=== PATIENT | male | born 1990 | race Caucasian/White ===

== ENCOUNTER 2019-07-04 11:17 | Emergency (ER) | payer OTHER ==
[2019-07-04] MEDS ORDERED: Pepcid 20 MG VIAL IV ONE ×2 (11:46→12:06)
[2019-07-04] MEDS ORDERED: Hydromorphone 1 mg/ml Ampule IV ONE (11:46)
[2019-07-04] MEDS ORDERED: Sodium Chloride 0.9% 1000 ML 1,000 ML IV STA (11:46)
--- NOTE | 2019-07-04 11:48 | ERPHSYRPT ---
- History of Present Illness Time Seen by Provider: 07/04/19 11:40 Historian: patient Exam Limitations: no limitations Patient Subjective Stated Complaint: pt states her has been having pain in abdomen that radiates to back. pt was seen in [facility] yesterday. pt states that he has bben having abdominal and back pain for two weeks. Triage Nursing Assessment: pt is gaurding abdominal area, rates pain as 10 Physician History: Patient states he has been having generalized abdominal pain for 3 weeks with no specific trigger and the pain has worsened where he can not go to work. Patient was evaluated for same symptoms on 07/03/2019 at [facility] in [place], [place] without any specific cause to his abdominal pain with evaluation with lab work, CT scan and urinalysis. pain today is worse in the right CVA/flank area. Timing/Duration: week(s) (3), worse (over the past two days) Activities at Onset: none Quality: stabbing Abdominal Pain Onset Location: generalized abdomen Pain Radiation: back Severity of Pain-Max: severe Severity of Pain-Current: severe Modifying Factors: Improves With: nothing Associated Symptoms: back, No chest pain, No diaphoresis, No diarrhea, No fever/ chills, No fatigue, No headache, No heartburn, No loss of appetite, No nausea, No neck pain, No rash, No shortness of breath, No syncope, No testicular pain, No vomiting, No weakness Previous symptoms: same symptoms as today, recently seen (seen at [facility] in [facility] on 07/03/2019) Allergies/Adverse Reactions: No Known Drug Allergies Allergy (Verified 07/04/19 11:32) Home Medications: Tramadol HCl 50 mg [Ultram 50 mg] 50 mg PO UD 02/06/15 [History] Hx Tetanus, Diphtheria Vaccination/Date Given: Yes Hx Influenza Vaccination/Date Given: No Hx Pneumococcal Vaccination/Date Given: No - Review of Systems Constitutional: No Fever, No Chills Eyes: No Eye Pain, No Photophobia Ears, Nose, & Throat: No Nose Pain, No Epistaxis, No Throat Pain Respiratory: No Cough, No Dyspnea Cardiac: No Chest Pain, No Edema, No Syncope Abdominal/Gastrointestinal: Abdominal Pain, No Nausea, No Vomiting, No Diarrhea , No Hematemesis, No Hematochezia, No Melena Genitourinary Symptoms: No Dysuria, No Hematuria, No Flank Pain Musculoskeletal: Back Pain, No Neck Pain Skin: No Rash Neurological: No Dizziness, No Focal Weakness, No Sensory Changes Psychological: No Alcohol Abuse, No Drug Abuse Endocrine: No Polyuria, No Excessive Sweating Hematologic/Lymphatic: No Easy Bleeding, No Easy Bruising All Other Systems: Reviewed and Negative - Past Medical History Pertinent Past Medical History: Yes Respiratory History: Asthma Psycho-Social History: Anxiety, Depression Other Medical History: anxiety, depression, back pain - Past Surgical History Past Surgical History: No - Social History Smoking Status: Current every day smoker How long have you smoked: 10 Exposure to second hand smoke: Yes Drug Use: marijuana Patient Lives Alone: No - Nursing Vital Signs Nursing Vital Signs: Initial Vital Signs Temperature 96.8 F 07/04/19 11:23 Pulse Rate 80 07/04/19 11:23 Respiratory Rate 16 07/04/19 11:23 Blood Pressure 155/97 07/04/19 11:23 O2 Sat by Pulse Oximetry 98 07/04/19 11:23 Pain Scale Pain Intensity 10 - Physical Exam General Appearance: no apparent distress, alert Eye Exam: PERRL/EOMI, eyes nml inspection, No scleral icterus Ears, Nose, Throat Exam: normal ENT inspection, pharynx normal, moist mucous membranes Neck Exam: normal inspection, non-tender, supple, full range of motion Respiratory Exam: normal breath sounds, lungs clear, airway intact, No respiratory distress, No accessory muscle use, No crackles/rales, No rhonchi, No wheezing, No stridor Cardiovascular Exam: regular rate/rhythm, normal heart sounds, normal peripheral pulses, capillary refill <2 sec, No murmur, No friction rub Gastrointestinal/Abdomen Exam: soft, normal bowel sounds, No tenderness, No mass , No rebound, No hernia Back Exam: normal inspection, normal range of motion, No CVA tenderness, No vertebral tenderness Extremity Exam: normal inspection, normal range of motion, pelvis stable Neurologic Exam: alert, oriented x 3, cooperative, 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, normal mood/affect, nml cerebellar function, sensation nml, No motor deficits Skin Exam: normal color, warm, dry, No jaundice, No cyanosis SpO2 Interpretation: normal SpO2: 98 O2 Delivery: Room Air - Course Nursing assessment & vital signs reviewed: Yes EKG Interpreted by Me: RATE (75), Sinus Rhythm, NORMAL AXIS, NORMAL INTERVALS, NORMAL QRS, NORMAL ST-T (negative previous EKG for comparison) - CT Exams Abdomen/Pelvis CT Interpretation: Other (per radiologist's interpretation from CT of the abdomen and pelvis performed a [facility] in [place], [place] : No evidence of urolithiasis or uropathy. No acute abnormality of the abdomen and pelvis. CT of the abdomen and pelvis with IV contrast per radiologist interpretation on 07/04/2019: CT of the abdomen/pelvis with contrast exam is again negative in comparison to CT of the abdomen and pelvis on 09/10/2008. Stable incidental 5 spondylosis without swallow ceases. Appendix not seen. No free fluid/air. Remaining liver, gallbladder, pancreas, adrenal glands, kidneys , ureters, bladder, and aorta appear normal and CT parents and attenuation. No pathological retroperitoneal lymphadenopathy. Stomach and bowel loops appear nonobstructed) Ordered Tests: Active Orders 24 hr Category Date Time Status EKG-ER Only STAT Care 07/04/19 11:46 Active IV Insertion STAT Care 07/04/19 11:46 Active NPO (ED) STAT Care 07/04/19 11:46 Active ABDOMEN AND PELVIS W CONTRAST [CT] Stat Exams 07/04/19 13:41 Completed AMYLASE Stat Lab 07/04/19 12:15 Completed CBC W DIFF Stat Lab 07/04/19 11:46 Completed CMP Stat Lab 07/04/19 12:15 Completed LIPASE Stat Lab 07/04/19 12:15 Completed Lactic Acid Stat Lab 07/04/19 11:58 Completed TROPONIN Q3H Lab 07/04/19 12:00 Ordered TROPONIN Q3H Lab 07/04/19 15:00 Ordered TROPONIN Q3H Lab 07/04/19 18:00 Ordered TROPONIN Q3H Lab 07/04/19 21:00 Ordered TROPONIN Q3H Lab 07/05/19 00:00 Ordered UA W/RFX UR CULTURE Stat Lab 07/04/19 13:00 Completed Medication Summary Discontinued Medications Generic Name Dose Route Start Last Admin Trade Name Freq PRN Reason Stop Dose Admin Famotidine 20 mg 07/04/19 11:46 07/04/19 12:12 Pepcid 20 Mg Vial IV 07/04/19 11:47 20 mg STAT ONE Administration Famotidine Confirm 07/04/19 12:06 Pepcid 20 Mg Vial Administered 07/04/19 12:07 Dose 20 mg IV .STK-MED ONE Hydromorphone HCl 1 mg 07/04/19 11:46 07/04/19 12:11 Hydromorphone 1 Mg/Ml Ampule IV 07/04/19 11:47 1 mg STAT ONE Administration Hydromorphone HCl Confirm 07/04/19 12:06 Hydromorphone 1 Mg/Ml Ampule Administered 07/04/19 12:07 Dose 1 mg .ROUTE .STK-MED ONE Sodium Chloride 1,000 mls @ 999 mls/hr 07/04/19 11:46 07/04/19 12:12 Sodium Chloride 0.9% 1000 Ml IV 07/04/19 12:46 999 mls/hr .Q1H1M STA Administration Sodium Chloride Confirm 07/04/19 12:06 Sodium Chloride 0.9% 1000 Ml Administered 07/04/19 12:07 Dose 1,000 mls @ ud .ROUTE .STK-MED ONE Lab/Rad Data: Laboratory Result Diagrams 07/04/19 11:46 07/04/19 12:15 Laboratory Results 07/04/19 07/04/19 07/04/19 Range/Units 13:00 12:15 11:58 WBC (4.0-10.5) K/mm3 RBC (4.1-5.6) M/mm3 Hgb (12.5-18.0) gm/dl Hct (42-50) % MCV (78-100) fl MCH (26-32) pg MCHC (32-36) g/dl RDW (11.5-14.0) % Plt Count (150-450) K/mm3 MPV (6-9.5) fl Gran % (36.0-66.0) % Eos # (Auto) (0-0.5) Absolute Lymphs (auto) (1.0-4.6) Absolute Monos (auto) (0.0-1.3) Lymphocytes % (24.0-44.0) % Monocytes % (0.0-12.0) % Eosinophils % (0.00-5.0) % Basophils % (0.0-0.4) % Absolute Granulocytes (1.4-6.9) Basophils # (0-0.4) Sodium 141 (137-145) mmol/L Potassium 3.8 (3.5-5.1) mmol/L Chloride 106 (98-107) mmol/L Carbon Dioxide 26 (22-30) mmol/L Anion Gap 12.9 (5-15) MEQ/L BUN 10 (9-20) mg/dL Creatinine 0.86 (0.66-1.25) mg/dL Estimated GFR > 60.0 ML/MIN Glucose 95 (74-106) mg/dL Lactic Acid 0.9 (0.4-2.0) Calcium 9.8 (8.4-10.2) mg/dL Total Bilirubin 0.80 (0.2-1.3) mg/dL AST 37 (17-59) U/L ALT 24 (0-50) U/L Alkaline Phosphatase 48 (38-126) U/L Serum Total Protein 7.8 (6.3-8.2) g/dL Albumin 4.8 (3.5-5.0) g/dL Amylase 105 (30-110) U/L Lipase 80 (23-300) U/L Urine Color YELLOW (YELLOW) Urine Appearance CLEAR (CLEAR) Urine pH 9.0 (5-6) Ur Specific [place] 1.010 (1.005-1.025) Urine Protein NEGATIVE (Negative) Urine Ketones NEGATIVE (NEGATIVE) Urine Blood NEGATIVE (0-5) Tyrel/ul Urine Nitrite NEGATIVE (NEGATIVE) Urine Bilirubin NEGATIVE (NEGATIVE) Urine Urobilinogen NEGATIVE (0-1) mg/dL Ur Leukocyte Esterase NEGATIVE (NEGATIVE) Urine WBC (Auto) NONE (0-5) /HPF Urine RBC (Auto) 0-2 (0-2) /HPF U Epithel Cells (Auto) NONE (FEW) /HPF Urine Bacteria (Auto) NONE (NEGATIVE) /HPF Urine Culture Reflexed NO (NO) Urine Glucose NEGATIVE (NEGATIVE) mg/dL 07/04/19 Range/Units 11:46 WBC 7.4 (4.0-10.5) K/mm3 RBC 5.14 (4.1-5.6) M/mm3 Hgb 16.2 (12.5-18.0) gm/dl Hct 46.4 (42-50) % MCV 90.3 (78-100) fl MCH 31.5 (26-32) pg MCHC 34.9 (32-36) g/dl RDW 12.9 (11.5-14.0) % Plt Count 258 (150-450) K/mm3 MPV 9.8 H (6-9.5) fl Gran % 65.4 (36.0-66.0) % Eos # (Auto) 0.18 (0-0.5) Absolute Lymphs (auto) 1.53 (1.0-4.6) Absolute Monos (auto) 0.80 (0.0-1.3) Lymphocytes % 20.7 L (24.0-44.0) % Monocytes % 10.8 (0.0-12.0) % Eosinophils % 2.4 (0.00-5.0) % Basophils % 0.7 (0.0-0.4) % Absolute Granulocytes 4.83 (1.4-6.9) Basophils # 0.05 (0-0.4) Sodium (137-145) mmol/L Potassium (3.5-5.1) mmol/L Chloride (98-107) mmol/L Carbon Dioxide (22-30) mmol/L Anion Gap (5-15) MEQ/L BUN (9-20) mg/dL Creatinine (0.66-1.25) mg/dL Estimated GFR ML/MIN Glucose (74-106) mg/dL Lactic Acid (0.4-2.0) Calcium (8.4-10.2) mg/dL Total Bilirubin (0.2-1.3) mg/dL AST (17-59) U/L ALT (0-50) U/L Alkaline Phosphatase (38-126) U/L Serum Total Protein (6.3-8.2) g/dL Albumin (3.5-5.0) g/dL Amylase (30-110) U/L Lipase (23-300) U/L Urine Color (YELLOW) Urine Appearance (CLEAR) Urine pH (5-6) Ur Specific [place] (1.005-1.025) Urine Protein (Negative) Urine Ketones (NEGATIVE) Urine Blood (0-5) Tyrel/ul Urine Nitrite (NEGATIVE) Urine Bilirubin (NEGATIVE) Urine Urobilinogen (0-1) mg/dL Ur Leukocyte Esterase (NEGATIVE) Urine WBC (Auto) (0-5) /HPF Urine RBC (Auto) (0-2) /HPF U Epithel Cells (Auto) (FEW) /HPF Urine Bacteria (Auto) (NEGATIVE) /HPF Urine Culture Reflexed (NO) Urine Glucose (NEGATIVE) mg/dL - Progress Progress: improved, pain not gone completely Progress Note: 07/04/19 13:44 Patient still having abominal pain. Patient will have CT abdomen and Pelvis with IV contrast. 07/04/19 14:52 No abdominal pain on repeat evaluation. No CVA tenderness bilaterally. ppatient has no acute abdominal, urological or any surgical issues her current inpatient admission or any immediate surgical pathologist evaluation at this time due to having negative lab work on 2 consecutive days, negative urinalysis on 2 consecutive days, and having [address] scan of the abdomen and pelvis being negative in the last 24 hours. Counseled pt/family regarding: lab results, diagnosis, need for follow-up, rad results - Departure Departure Disposition: Home Clinical Impression: Generalized abdominal pain of unknown etiology, Elevated blood pressure reading without diagnosis of hypertension Condition: Good Critical Care Time: No Referrals: DOCTOR,NO FAMILY [NON-STAFF PHY W/O PRIVILEGES] - 07/05/19 Instructions: Acute Abdomen (Belly Pain), Adult (DC), Upper Back Pain (DC) Additional Instructions: return immediately back to the emergency department if any worse of bowel pain, new change in symptoms, or any other new signs or symptoms that were not present in her throat for immediate reevaluation. It is important to follow up with your physician on 07/05/2019 to follow-up your symptoms and determine the need for other testing as you have had [address] scans as well as lab-work in the past 2 days. Forms: Work/School Release Form
[2019-07-04] MEDS ORDERED: Hydromorphone 1 mg/ml Ampule ONE (12:06)
[2019-07-04] MEDS ORDERED: Sodium Chloride 0.9% 1000 ML 1,000 ML ONE (12:06)
[2019-07-04 12:10] LABS: BASOPHIL % 0.7 % (0.0-0.4); Basophil (Absolute #) 0.05 (0-0.4); Eosinophil % 2.4 % (0.00-5.0); Eosinophil (Absolute #) 0.18 (0-0.5); Granulocyte Absolute (ANC) 4.83 (1.4-6.9); Granulocytes % 65.4 % (36.0-66.0); Hematocrit 46.4 % (42-50); Hemoglobin 16.2 gm/dl (12.5-18.0); Lymphocyte (Absolute #) 1.53 (1.0-4.6); Lymphocytes % 20.7 % (24.0-44.0); Mean Cell Volume 90.3 fl (78-100); Mean Corpuscular Hemoglobin 31.5 pg (26-32); Mean Corpuscular Hgb Concent. 34.9 g/dl (32-36); Mean Platelet Volume 9.8 fl (6-9.5); Monocytes % 10.8 % (0.0-12.0); Platelet Count 258 K/mm3 (150-450); Red Blood Count 5.14 M/mm3 (4.1-5.6); Red Cell Distribution Width 12.9 % (11.5-14.0); White Blood Count 7.4 K/mm3 (4.0-10.5)
[2019-07-04 12:33] LABS: ALBUMIN 4.8 g/dL (3.5-5.0); ALKALINE PHOSPHATASE 48 U/L (38-126); AMYLASE 105 U/L (30-110); ANION GAP 12.9 MEQ/L (5-15); BLOOD UREA NITROGEN 10 mg/dL (9-20); CHLORIDE 106 mmol/L (98-107); Calcium 9.8 mg/dL (8.4-10.2); Carbon Dioxide 26 mmol/L (22-30); Creatinine 1 0.86 mg/dL (0.66-1.25); Glucose 95 mg/dL (74-106); LIPASE 80 U/L (23-300); Potassium 3.8 mmol/L (3.5-5.1); SGOT/AST 37 U/L (17-59); SGPT/ALT 24 U/L (0-50); SODIUM 141 mmol/L (137-145); Total Protein 7.8 g/dL (6.3-8.2)
[2019-07-04 13:10] LABS: Appearance CLEAR (CLEAR); Bilirubin NEGATIVE (NEGATIVE); Blood NEGATIVE Ery/ul (0-5); Glucose NEGATIVE (NEGATIVE); Ketones NEGATIVE (NEGATIVE); Leukocyte Esterase NEGATIVE (NEGATIVE); Nitrite NEGATIVE (NEGATIVE); Protein,Urine Dip NEGATIVE (Negative); RBC 0-2 /HPF (0-2); Urobilinogen NEGATIVE mg/dL (0-1)
[2019-07-04 13:18] VITALS: O2SAT 98
[2019-07-04 13:59] VITALS: BP 142/89; PULSE 88
--- NOTE | 2019-07-04 14:44 | XRAY ---
Indication: Upper right flank pain 2 weeks. Multiple contiguous axial images obtained through the abdomen and pelvis using 80 cc Isovue 370 contrast only. Comparison: September 10, 2008. Lung bases are clear. Heart is not enlarged. Noncontrasted stomach and bowel loops appear nonobstructed. Appendix not seen. No free fluid/air. Remaining liver, gallbladder, pancreas, adrenal glands, kidneys, ureters, bladder, and aorta appear normal in CT appearance and attenuation. No pathologic retroperitoneal lymphadenopathy. Osseous structures intact. Stable bilateral L5 spondylolysis without spondylolisthesis. Impression: CT abdomen/pelvis with contrast exam is again negative. Stable incidental L5 spondylolysis without spondylolisthesis. CT DI 14.87
== END 2019-07-04 15:12 | disposition home or self-care (01) ==
LOC: ED 11:17
DX: R10.9 Unspecified abdominal pain (principal); R03.0 Elevated blood-pressure reading, without diagnosis of hypertension
CPT/HCPCS: 36000; 36415; 74177; 80053; 81001; 82150; 83605; 83690; 84484; 85025; 93005; 96360; 96374; 96375; 99284; J1170

== ENCOUNTER 2019-07-26 11:08 | Emergency (ER) | payer OTHER ==
[2019-07-26 11:58] LABS: Hematocrit 50.2 % (42-50); Hemoglobin 17.6 gm/dl (12.5-18.0); Mean Cell Volume 90.3 fl (78-100); Mean Corpuscular Hemoglobin 31.7 pg (26-32); Mean Corpuscular Hgb Concent. 35.1 g/dl (32-36); Mean Platelet Volume 10.1 fl (6-9.5); Platelet Count 299 K/mm3 (150-450); Red Blood Count 5.56 M/mm3 (4.1-5.6); Red Cell Distribution Width 13.2 % (11.5-14.0); White Blood Count 7.8 K/mm3 (4.0-10.5)
--- NOTE | 2019-07-26 12:16 | ERPHSYRPT ---
- History of Present Illness Time Seen by Provider: 07/26/19 11:45 Historian: patient Exam Limitations: no limitations Patient Subjective Stated Complaint: pt reports abd pain for 2 months, states he was seen at this facility recently for the same issue. states he is now having abd pain and diarrhea so often he is missing work. reports he has seen his PCP as well and diagnosed with pleurisy. pt belives he has gallbladder issues and would like to have an ultrasound today. Triage Nursing Assessment: pt is aox3, afebrile, pupils perrl, resps easy and non labored, radial pulses strong and equal, cap refill < 3 seconds, pt abd soft , tender to the mid upper abdomen, bowel sounds present normoactive x 4. pt skin pink warm dry. Physician History: Pain R upper abdomen; worse after eating - 2 months - seen by his primary care provider - has had two ER visits here with CT; believes he needs US. Activities at Onset: none Quality: burning, cramping Abdominal Pain Onset Location: RUQ Pain Radiation: no radiation Severity of Pain-Max: moderate Severity of Pain-Current: mild Modifying Factors: Improves With: eating (worsens or causes after eating) Associated Symptoms: denies symptoms Allergies/Adverse Reactions: No Known Drug Allergies Allergy (Verified 07/26/19 11:41) Home Medications: Tramadol HCl 50 mg [Ultram 50 mg] 50 mg PO UD 02/06/15 [History] Hydrocodon/Ibupr 7.5mg/200mg [Vicoprofen 7.5mg/200mg Tablet] 1 tab PO Q4- 6HPRN PRN 07/26/19 [History] Hx Tetanus, Diphtheria Vaccination/Date Given: Yes Hx Influenza Vaccination/Date Given: No Hx Pneumococcal Vaccination/Date Given: No Immunizations Up to Date: Yes - Review of Systems Constitutional: No Symptoms Respiratory: No Symptoms Cardiac: No Symptoms Abdominal/Gastrointestinal: Abdominal Pain (RUQ associated with eating) All Other Systems: Reviewed and Negative - Past Medical History Pertinent Past Medical History: Yes Respiratory History: Asthma Psycho-Social History: Anxiety, Depression Other Medical History: anxiety, depression, back pain - Past Surgical History Past Surgical History: No - Social History Smoking Status: Current every day smoker How long have you smoked: 10 Exposure to second hand smoke: No Drug Use: marijuana Patient Lives Alone: Yes - Nursing Vital Signs Nursing Vital Signs: Initial Vital Signs Temperature 98.2 F 07/26/19 11:23 Pulse Rate 86 07/26/19 11:23 Respiratory Rate 20 07/26/19 11:23 Blood Pressure 161/105 07/26/19 11:23 O2 Sat by Pulse Oximetry 99 07/26/19 11:23 Pain Scale Pain Intensity 9 - Physical Exam General Appearance: no apparent distress Eye Exam: PERRL/EOMI, eyes nml inspection Ears, Nose, Throat Exam: normal ENT inspection, pharynx normal Neck Exam: normal inspection, non-tender, supple Respiratory Exam: normal breath sounds, lungs clear, airway intact, No chest tenderness Cardiovascular Exam: regular rate/rhythm, normal heart sounds, normal peripheral pulses, No edema Gastrointestinal/Abdomen Exam: soft, normal bowel sounds, No tenderness, No distention Extremity Exam: normal inspection, normal range of motion Neurologic Exam: alert, oriented x 3, cooperative Skin Exam: normal color, warm, dry SpO2 Interpretation: normal SpO2: 99 O2 Delivery: Room Air - Course Nursing assessment & vital signs reviewed: Yes Lab/Rad Data: Laboratory Result Diagrams 07/26/19 11:45 07/26/19 11:45 Laboratory Results 07/26/19 07/26/19 Range/Units 11:45 11:45 WBC 7.8 (4.0-10.5) K/mm3 RBC 5.56 (4.1-5.6) M/mm3 Hgb 17.6 (12.5-18.0) gm/dl Hct 50.2 H (42-50) % MCV 90.3 (78-100) fl MCH 31.7 (26-32) pg MCHC 35.1 (32-36) g/dl RDW 13.2 (11.5-14.0) % Plt Count 299 (150-450) K/mm3 MPV 10.1 H (6-9.5) fl Segmented Neutrophils 72 H (36.-66.) % Lymphocytes (Manual) 19 L (24-44) % Monocytes (Manual) 6 (0.0-12.0) % Eosinophils (Manual) 2 (0.00-3.0) % Basophils (Manual) 1 (0.0-1.0) % Platelet Estimate NORMAL (NORMAL) RBC Morphology NORMAL Sodium 142 (137-145) mmol/L Potassium 4.4 (3.5-5.1) mmol/L Chloride 105 (98-107) mmol/L Carbon Dioxide 26 (22-30) mmol/L Anion Gap 16.3 H (5-15) MEQ/L BUN 16 (9-20) mg/dL Creatinine 1.02 (0.66-1.25) mg/dL Estimated GFR > 60.0 ML/MIN Glucose 114 H (74-106) mg/dL Calcium 10.1 (8.4-10.2) mg/dL Total Bilirubin 0.60 (0.2-1.3) mg/dL AST 29 (17-59) U/L ALT 29 (0-50) U/L Alkaline Phosphatase 46 (38-126) U/L Serum Total Protein 7.9 (6.3-8.2) g/dL Albumin 4.8 (3.5-5.0) g/dL Amylase 111 H (30-110) U/L Lipase 147 (23-300) U/L - Progress Progress Note: 07/27/19 21:54 Educated re US done and a DC will be made for him - follow up with primary care provider. - Departure Departure Disposition: Home Clinical Impression: Abdominal pain Qualifiers: Abdominal location: right upper quadrant Qualified Code(s): R10.11 - Right upper quadrant pain Condition: Good Critical Care Time: No Referrals: SANJIV BENNETT [Primary Care Provider] - Instructions: Acute Abdomen (Belly Pain) Additional Instructions: Follow up with primary care provder; take CD of GB ultrasound with you.
[2019-07-26 12:17] LABS: ALBUMIN 4.8 g/dL (3.5-5.0); ALKALINE PHOSPHATASE 46 U/L (38-126); AMYLASE 111 U/L (30-110); ANION GAP 16.3 MEQ/L (5-15); BLOOD UREA NITROGEN 16 mg/dL (9-20); CHLORIDE 105 mmol/L (98-107); Calcium 10.1 mg/dL (8.4-10.2); Carbon Dioxide 26 mmol/L (22-30); Creatinine 1 1.02 mg/dL (0.66-1.25); Glucose 114 mg/dL (74-106); LIPASE 147 U/L (23-300); Potassium 4.4 mmol/L (3.5-5.1); SGOT/AST 29 U/L (17-59); SGPT/ALT 29 U/L (0-50); SODIUM 142 mmol/L (137-145); Total Protein 7.9 g/dL (6.3-8.2)
[2019-07-26 12:31] LABS: Basophil 1 % (0.0-1.0); Eosinophil 2 % (0.00-3.0); Lymphocytes 19 % (24-44); Monocyte 6 % (0.0-12.0); Neutrophils 72 % (36.-66.); Platelet Estimate NORMAL (NORMAL); Total Cells Counted 100
--- NOTE | 2019-07-26 14:05 | XRAY ---
Indication: Right upper quadrant pain. Recent meal 3 hours ago. Two-dimensional gallbladder sonogram performed. Comparison: None Gallbladder partially contracted without gallstones, wall thickening, or pericholecystic fluid. Common bile duct measures 1.2 mm. No intrahepatic biliary distention. Remaining visualized portions of the liver, pancreas, and right kidney appear sonographically normal. Right kidney measures 10.4 cm in length. No ascites. Impression: Negative gallbladder sonogram.
[2019-07-26 14:58] VITALS: BP 139/54; PULSE 85
[2019-07-27 21:56] VITALS: O2SAT 99
== END 2019-07-26 14:55 | disposition home or self-care (01) ==
LOC: ED 11:08
DX: R10.11 Right upper quadrant pain (principal); Z79.899 Other long term (current) drug therapy
CPT/HCPCS: 36415; 76705; 80053; 82150; 83690; 85025; 99284